=== PATIENT | male | born 1945 | race Caucasian/White ===

== ENCOUNTER 2017-04-07 15:47 | Emergency (ER) | payer MEDICARE, SELFPAY ==
[2017-04-07 16:15] VITALS: BP 150/65; PULSE 74; RESP 16; TEMP 36.7; O2SAT 98; BMI 31.3
== END 2017-04-07 16:50 | disposition home or self-care (01) ==
PROVIDERS: Emergency Provider Physician Assistant; Family Provider General Practice
DX: J01.90 Acute sinusitis, unspecified (principal)
CPT/HCPCS: G0463; 99202

== ENCOUNTER → 2018-11-28 14:05 | Outpatient (CLI) | payer MEDICARE, SELFPAY ==
--- NOTE | 2018-11-28 14:12 | XR_ITS ---
PROCEDURE: XR HAND RT MIN 3V CLINICAL INDICATION: hand injury Posttraumatic pain COMPARISON: No exams were available for comparison FINDINGS: No fracture or dislocation. No lytic or blastic change. There is normal mineralization. The joint spaces are well-preserved. No significant degenerative/arthritic changes. No erosive changes evident. Other findings:None. IMPRESSION: No acute findings. Dictated by: Lobo Freed MD 11/28/2018 16:04 Signed by: <Electronically signed by Lobo Freed MD in [place]> 11/28/2018 16:04
== END ==
PROVIDERS: PCP General Practice; Visit Provider Orthopaedic Surgery
DX: L08.9 Local infection of the skin and subcutaneous tissue, unspecified (principal); S61.411A Laceration without foreign body of right hand, initial encounter
CPT/HCPCS: 73130

== ENCOUNTER → 2020-06-16 13:49 | Outpatient (CLI) | payer MEDICARE, SELFPAY ==
--- NOTE | 2020-06-16 14:00 | MR_ITS ---
PROCEDURE: MR ORBITS FACE NECK WO/W CON CLINICAL INDICATION: SWOLLEN RT SALIVARY GLAND Pt states hx of rt swollen rt salivary gland found by oral surgeon. COMPARISON: No exams were available for comparison TECHNIQUE: Routine multiplanar multi echo sequences are performed without gadolinium enhancement. FINDINGS: There are 2 small nodular areas in the anterior aspect of the right lobe of the thyroid gland measuring 4 and 3 mm isointense on T1 and hyperintense on T2 and may be due to some 2 small nodes. Scattered small nodes are present in the neck on both sides measuring up to 9 mm anterior to the left submandibular gland. There is a 5 and a 6 mm node superficial to the right submandibular gland. Thyroid gland has an unremarkable appearance. There is an air-fluid level in the left maxillary sinus with mild mucosal thickening of the left maxillary sinus. Small nodes are present in the internal jugular chains on both sides measuring up to 10 by 6 mm on the left. The nasopharynx, oropharynx, and epiglottis have an unremarkable appearance. There is minimal nodularity noted along the left vocal fold best detected on series 3 image 28. This measures approximately 3 mm and is of questionable clinical significance. Direct visualization may provide further evaluation. There is degenerative disc disease at C5-C6 with endplate osteophytes and bulging disc causing canal stenosis. There is mild bulging disc with degenerative disc disease at C6-C7 also with canal stenosis. IMPRESSION: 1. Scattered small cervical nodes present in the neck as described above with 2 suspected small nodes anterior to the right parotid gland as well as small nodes superficial to the submandibular glands. No dominant adenopathy. No abnormal fluid collections. 2. Left maxillary sinus disease. 3. Questionable small nodule of the left vocal fold. This may be better evaluated with direct visualization. 4. Degenerative disc disease with canal stenosis at C5-C6 and C6-C7 Dictated by: Lobo Freed MD 06/17/2020 12:49 Lobo Freed MD in [place] 06/17/2020 12:49
== END ==
PROVIDERS: PCP General Practice; Visit Provider Dentist
DX: D37.030 Neoplasm of uncertain behavior of the parotid salivary glands (principal)
CPT/HCPCS: 70543; A9576

== ENCOUNTER → 2020-10-19 13:36 | Outpatient (CLI) | payer MEDICARE, SELFPAY ==
[2020-10-19 14:15] LABS: Chloride 102 mmol/L (98-107); Potassium 4.2 mmoL/L (3.5-5.1); Sodium 139 mmol/L (136-145)
[2020-10-19 14:17] LABS: Blood Urea Nitrogen 18 mg/dl (9-20); Estimated Glomerular Filt Rate 65 ml/min (>60); GFR (African American) 79 ML/MIN (>60)
[2020-10-19 14:18] LABS: Alanine Aminotransferase 21 U/L (12-78); Albumin Level 4.4 g/dl (3.5-5.0); Albumin/Globulin Ratio 1.8 (1.1-1.8); Alkaline Phosphatase 74 U/L (38-126); Anion Gap 13.2 mEq/L (5-15); Aspartate Amino Transferase 28 U/L (17-59); Bilirubin,Total 1.1 mg/dl (0.2-1.3); Calcium 9.2 mg/dl (8.4-10.2); Carbon Dioxide 28 mmol/L (22.0-30.0); Chol/HDL Ratio 2.8 (1-3.5); Cholesterol 133 mg/dl (140-200); Globulin 2.4 g/dL (1.3-3.2); Glucose 100 mg/dl (74-100); HDL Cholesterol 48 mg/dl (40-60); Total Protein,Serum 6.8 g/dl (6.3-8.2); Triglycerides 108 mg/dl (30-150); VLDL Cholesterol 22 mg/dL (0-40)
[2020-10-19 14:28] LABS: Basophils # 0.1 K/mm3 (0-0.2); Eosinophils # 0.1 K/mm3 (0.0-0.4); Eosinophils % 1.8 % (0.1-12.0); Hematocrit 44.9 % (42.0-52.0); Hemoglobin 15.3 g/dL (14.1-18.0); Lymphocytes # 1.5 K/mm3 (0.7-4.5); Lymphocytes % 26.7 % (10-50); Mean Corpuscular Hemoglobin 33.3 pg (27.0-31.2); Mean Corpuscular Volume 97.7 fl (80-94); Mean Platelet Volume 8.3 fl (7.4-10.4); Monocytes # 0.4 K/mm3 (0.1-1.0); Neutrophils # 3.6 K/mm3 (1.8-7.8); Neutrophils % 63.4 % (37.0-80.0); Platelet Count 235 K/mm3 (142-424); Red Cell Distribution Width 13.7 % (11.5-17.5); White Blood Count 5.7 K/mm3 (4.8-10.8)
[2020-10-19 14:29] LABS: Direct LDL Cholesterol 63.56 mg/dL (100-129)
[2020-10-19 14:35] LABS: Triiodothryronine (T3) Uptake 32 % (23.5-40.5)
[2020-10-19 14:36] LABS: Free Thyroxine Index 2.4 ug/dL (5.93-13.13); T4 (Thyroxine) 7.6 ug/dl (5.53-11.0)
[2020-10-19 14:49] LABS: Thyroid Stimulating Hormone 1.04 uIU/mL (0.465-4.68)
== END ==
PROVIDERS: Visit Provider General Practice
DX: I10 Essential (primary) hypertension (principal); E78.5 Hyperlipidemia, unspecified; R73.09 Other abnormal glucose; Z79.899 Other long term (current) drug therapy
CPT/HCPCS: 36415; 80053; 80061; 84436; 84443; 84479; 85025

== ENCOUNTER → 2021-05-19 13:31 | Outpatient (CLI) | payer MEDICARE, SELFPAY ==
[2021-05-19 13:51] LABS: Microscopic, Urine URINE MICROSCOPIC (MICROSCOPIC)
[2021-05-19 14:05] LABS: Basophils # 0.1 K/mm3 (0-0.2); Eosinophils # 0.1 K/mm3 (0.0-0.4); Eosinophils % 2.4 % (0.1-12.0); Hematocrit 45.4 % (42.0-52.0); Hemoglobin 15.4 g/dL (14.1-18.0); Lymphocytes # 1.6 K/mm3 (0.7-4.5); Lymphocytes % 29.3 % (10-50); Mean Corpuscular HGB Conc 34.1 g/dL (31.8-35.4); Mean Corpuscular Hemoglobin 33.7 pg (27.0-31.2); Mean Corpuscular Volume 98.9 fl (80-94); Monocytes # 0.3 K/mm3 (0.1-1.0); Monocytes % 5.8 % (1.7-9.3); Neutrophils # 3.4 K/mm3 (1.8-7.8); Neutrophils % 61.4 % (37.0-80.0); Platelet Count 257 K/mm3 (142-424); Red Blood Count 4.58 M/mm3 (4.60-6.20); Red Cell Distribution Width 13.2 % (11.5-17.5); White Blood Count 5.5 K/mm3 (4.8-10.8)
[2021-05-19 14:16] LABS: Appearance,Urine CLEAR (Clear); Bilirubin,Urine Negative (Negative); Blood, Urine Negative (Negative); Color,Urine YELLOW (Yellow); Glucose,Urine (UA) Negative (Negative); Ketones,Urine Negative (Negative); Leukocyte Esterase,Urine Negative (Negative); Nitrate,Urine Negative (Negative); Protein,Urine Negative (Negative); Urobilinogen,Urine 0.2 EU/dl (0.2)
[2021-05-19 14:28] LABS: Squamous Epithelial Cell,Urine Occasional #/hpf (0-5); WBC,Urine Occasional #/hpf (0-3)
[2021-05-19 14:46] LABS: Alanine Aminotransferase 30 U/L (12-78); Albumin Level 4.5 g/dl (3.5-5.0); Alkaline Phosphatase 64 U/L (38-126); Anion Gap 12.5 mEq/L (5-15); Aspartate Amino Transferase 36 U/L (17-59); Bilirubin,Total 0.9 mg/dl (0.2-1.3); Blood Urea Nitrogen 14 mg/dl (9-20); Calcium 9.1 mg/dl (8.4-10.2); Carbon Dioxide 28 mmol/L (22.0-30.0); Chloride 101 mmol/L (98-107); Chol/HDL Ratio 3.4 (1-3.5); Cholesterol 142 mg/dl (140-200); Estimated Glomerular Filt Rate 65 ml/min (>60); GFR (African American) 79 ML/MIN (>60); Globulin 2.3 g/dL (1.3-3.2); Glucose 153 mg/dl (74-100); HDL Cholesterol 42 mg/dl (40-60); Potassium 4.5 mmoL/L (3.5-5.1); Sodium 137 mmol/L (136-145); Total Protein,Serum 6.8 g/dl (6.3-8.2); Triglycerides 163 mg/dl (30-150); VLDL Cholesterol 33 mg/dL (0-40)
[2021-05-19 15:03] LABS: Free Thyroxine Index 2.2 ug/dL (5.93-13.13); T4 (Thyroxine) 6.8 ug/dl (5.53-11.0); Triiodothryronine (T3) Uptake 32 % (23.5-40.5)
[2021-05-19 15:17] LABS: Thyroid Stimulating Hormone 1.52 uIU/mL (0.465-4.68)
[2021-05-19 15:18] LABS: Prostate Specific Ag Screen 0.7 ng/ml (0.0-4.0)
[2021-05-19 15:53] LABS: Vitamin B12 657 pg/mL (239-931)
[2021-05-19 16:14] LABS: Folate > 20.00 ng/mL
== END ==
PROVIDERS: Visit Provider General Practice
DX: I10 Essential (primary) hypertension (principal); E78.5 Hyperlipidemia, unspecified; R73.09 Other abnormal glucose; K21.9 Gastro-esophageal reflux disease without esophagitis; Z12.11 Encounter for screening for malignant neoplasm of colon; Z12.5 Encounter for screening for malignant neoplasm of prostate; Z79.899 Other long term (current) drug therapy
CPT/HCPCS: 36415; 80053; 80061; 81001; 82607; 82746; 84436; 84443; 84479; 85025; G0103

== ENCOUNTER → 2021-06-15 13:03 | Outpatient (CLI) | payer MEDICARE, SELFPAY ==
[2021-06-15 13:11] LABS: Microscopic, Urine URINE MICROSCOPIC (MICROSCOPIC)
[2021-06-15 13:58] LABS: Appearance,Urine CLEAR (Clear); Bilirubin,Urine Negative (Negative); Blood, Urine Negative (Negative); Color,Urine YELLOW (Yellow); Glucose,Urine (UA) Negative (Negative); Ketones,Urine Negative (Negative); Leukocyte Esterase,Urine Negative (Negative); Nitrate,Urine Negative (Negative); Protein,Urine Negative (Negative); Specific Gravity, Urine 1.015 (1.005-1.030); Urobilinogen,Urine 0.2 EU/dl (0.2)
[2021-06-15 14:46] LABS: Albumin Level 4.1 g/dl (3.5-5.0); Anion Gap 11.3 mEq/L (5-15); Blood Urea Nitrogen 17 mg/dl (9-20); Calcium 8.9 mg/dl (8.4-10.2); Carbon Dioxide 27 mmol/L (22.0-30.0); Chloride 102 mmol/L (98-107); Estimated Glomerular Filt Rate 65 ml/min (>60); GFR (African American) 79 ML/MIN (>60); Glucose 140 mg/dl (74-100); Phosphorous 3.5 mg/dl (2.5-4.5); Potassium 4.3 mmoL/L (3.5-5.1); Sodium 136 mmol/L (136-145)
[2021-06-15 14:47] LABS: Bacteria,Urine Trace /lpf; Squamous Epithelial Cell,Urine Occasional #/hpf (0-5)
== END ==
PROVIDERS: Visit Provider Internal Medicine Nephrology
DX: N18.2 Chronic kidney disease, stage 2 (mild) (principal)
CPT/HCPCS: 36415; 80069; 81001

== ENCOUNTER 2021-07-06 13:54 | Emergency (ER) | payer MEDICARE, SELFPAY ==
[2021-07-06 14:00] VITALS: BP 115/60; PULSE 78; RESP 19; TEMP 36.7; O2SAT 100; BMI 31.9
--- NOTE | 2021-07-06 14:22 | HMH.EDUTC ---
[facility] [place] Disposition Clinical Impression: Sinusitis Qualifiers: Sinusitis location: unspecified location Chronicity: unspecified Qualified Code(s): J32.9 - Chronic sinusitis, unspecified Disposition: Home, Self-Care Condition on Discharge: Good Instructions: Sinusitis, DI for Sinusitis Additional Instructions: *Monitor Temp, Over the counter Motrin or Tylenol as directed/as needed Tylenol every 4 hours and Motrin every 6 hours (as long as your family doctor has told you that you can take it) for fever or pain. and straight to ER if unable to lower temp less than 101.0 after medication given *Warm salt water gargles may help to soothe the throat *Throat Lozenges *Warm fluids like tea with honey may help to soothe the throat *Sleep elevated *Humidifier/Vaporizer Follow up IMMEDIATELY for new or worsening symptoms or no Noticeable improvement over the next 48-72 hours. 911 for difficulty breathing or swallowing Prescriptions: Benzonatate [Benzonatate 100mg cap] 100 mg PO Q8HP PRN #15 cap PRN Reason: Cough Transmission Status: Pending to [facility] Azithromycin [Z-Benson 250mg Tab] 250 mg PO DIRECTED #6 tab Transmission Status: Received by [id number] Referrals: Provider,Referral, MD [Primary Care Provider] - As needed Time of Disposition: 14:33 Medical Decision Making - Delgado Inquiry Pt receiving controlled substance: No Delgado was queried for this patient: No Vital Signs: 07/06/21 14:00 07/06/21 14:41 Temperature 98.1 F 98.1 F Temperature Source Oral Pulse Rate 78 Pulse Rate [Right Brachial] 78 Respiratory Rate 19 19 Blood Pressure 115/60 Blood Pressure [Right Arm] 115/60 Blood Pressure Mean [Right Arm] 78 Blood Pressure Source [Right Arm] Automatic Cuff Blood Pressure Position [Right Arm] Sitting 02 Sat by Pulse Oximetry 100 Oxygen Delivery Method Room Air Orders (Tests/Meds): ED MEDICATIONS Discontinued Medications Generic Name Dose Route Start Last Admin Trade Name Freq PRN Reason Stop Dose Admin Methylprednisolone Sodium Succinate 125 mg 07/06/21 14:31 07/06/21 14:31 Methylprednisolone Sod Succ 125mg Vial IM 07/06/21 14:32 125 mg ONCE ONE Administration Medical Decision Narrative: Patient states that he has taken azithromycin in the past without complications or reactions [facility] [place] HPI - General Stated complaint: congestion, runny nose Time Seen by Provider: 07/06/21 14:22 Mode of Arrival: Ambulatory Source of Information: Patient Limitations: No Limitations Description of Symptoms (Recalled from Triage Doc. by RN): PATIENT C/O SINUS PRESSURE, HEADACHE AND COUGH HEENT Symptoms (Recalled from RN notes): Yes Resp Symptoms (Recalled from RN notes): Yes Skin Symptoms (Recalled from RN notes): No MS Symptoms (Recalled from RN notes): No Functional Status (Recalled from RN notes): WNL - History of Present Illness Provider Complaint: Patient states that has been having sinus pain and pressure along with drainage in the back of his throat States that he gets this a couple times a year and has to go in and get a shot of steriod and a zpack to clear it up States that over the last week or so it has continued to get worse and feels like his teeth are sore from the sinus pressure - Related Data Home Medications Medication Instructions Recorded Confirmed cetirizine 10 mg capsule 10 mg PO DAILY cap 01/09/18 03/22/19 chlorthalidone 25 mg tablet 25 mg PO DAILY 01/09/18 03/22/19 ezetimibe 10 mg tablet 10 mg PO DAILY 01/09/18 03/22/19 lisinopril 40 mg tablet 40 mg PO DAILY 01/09/18 03/22/19 ropinirole 0.25 mg tablet 0.25 mg PO QHS 01/09/18 03/22/19 rosuvastatin 5 mg tablet 5 mg PO DAILY 01/09/18 03/22/19 flu vacc [id number](65yr up)PF 180 IM 03/22/19 03/22/19 mcg/0.5 mL intramuscular syringe ibuprofen 600 mg tablet 600 mg PO TID PRN tab 03/22/19 03/22/19 icosapent ethyl 1 gram capsule 2 g PO BID 03/22/19 03/22/19 Previous Rx's [facility]
[2021-07-06 14:41] VITALS: BP 115/60; PULSE 78; RESP 19; TEMP 36.7; O2SAT 100
[2021-07-06 15:01] LABS: UTC Influenza A Antigen Negative (Negative); UTC Influenza B Antigen Negative (Negative)
== END 2021-07-06 15:04 | disposition home or self-care (01) ==
PROVIDERS: Emergency Provider Nurse Practitioner
DX: J32.9 Chronic sinusitis, unspecified (principal); I10 Essential (primary) hypertension; E78.5 Hyperlipidemia, unspecified; Z87.891 Personal history of nicotine dependence; Z79.899 Other long term (current) drug therapy
CPT/HCPCS: 87804; 96372; 99212; G0463

== ENCOUNTER → 2021-08-09 16:15 | Outpatient (CLI) | payer MEDICARE, SELFPAY ==
[2021-08-09 16:30] LABS: Microscopic, Urine URINE MICROSCOPIC (MICROSCOPIC)
[2021-08-09 16:44] LABS: Basophils # 0.2 K/mm3 (0-0.2); Basophils % 3.1 % (0.1-2.0); Eosinophils # 0.1 K/mm3 (0.0-0.4); Eosinophils % 1.7 % (0.1-12.0); Hematocrit 45.4 % (42.0-52.0); Hemoglobin 15.2 g/dL (14.1-18.0); Lymphocytes # 1.5 K/mm3 (0.7-4.5); Lymphocytes % 24.9 % (10-50); Mean Corpuscular HGB Conc 33.5 g/dL (31.8-35.4); Mean Corpuscular Hemoglobin 33.7 pg (27.0-31.2); Mean Corpuscular Volume 100.8 fl (80-94); Mean Platelet Volume 8.4 fl (7.4-10.4); Monocytes # 0.4 K/mm3 (0.1-1.0); Monocytes % 7.3 % (1.7-9.3); Neutrophils # 3.7 K/mm3 (1.8-7.8); Platelet Count 236 K/mm3 (142-424); Red Blood Count 4.51 M/mm3 (4.60-6.20); Red Cell Distribution Width 13.5 % (11.5-17.5); White Blood Count 5.9 K/mm3 (4.8-10.8)
[2021-08-09 17:28] LABS: Alanine Aminotransferase 25 U/L (12-78); Albumin Level 4.4 g/dl (3.5-5.0); Alkaline Phosphatase 62 U/L (38-126); Anion Gap 10.1 mEq/L (5-15); Aspartate Amino Transferase 28 U/L (17-59); Bilirubin,Total 0.7 mg/dl (0.2-1.3); Blood Urea Nitrogen 14 mg/dl (9-20); Calcium 9.7 mg/dl (8.4-10.2); Carbon Dioxide 30 mmol/L (22.0-30.0); Chloride 100 mmol/L (98-107); Chol/HDL Ratio 3.4 (1-3.5); Cholesterol 148 mg/dl (140-200); Estimated Glomerular Filt Rate 65 ml/min (>60); GFR (African American) 79 ML/MIN (>60); Globulin 2.2 g/dL (1.3-3.2); Glucose 131 mg/dl (74-100); HDL Cholesterol 43 mg/dl (40-60); Potassium 4.1 mmoL/L (3.5-5.1); Sodium 136 mmol/L (136-145); Total Protein,Serum 6.6 g/dl (6.3-8.2); Triglycerides 175 mg/dl (30-150); VLDL Cholesterol 35 mg/dL (0-40)
[2021-08-09 17:40] LABS: Direct LDL Cholesterol 65.03 mg/dL (100-129)
[2021-08-09 17:45] LABS: Free Thyroxine Index 2.1 ug/dL (5.93-13.13); T4 (Thyroxine) 6.8 ug/dl (5.53-11.0); Triiodothryronine (T3) Uptake 31 % (23.5-40.5)
[2021-08-09 17:59] LABS: Thyroid Stimulating Hormone 1.57 uIU/mL (0.465-4.68)
[2021-08-09 18:35] LABS: Vitamin B12 532 pg/mL (239-931)
[2021-08-09 18:43] LABS: Folate > 20.00 ng/mL
[2021-08-09 20:16] LABS: Appearance,Urine CLEAR (Clear); Bilirubin,Urine Negative (Negative); Blood, Urine Negative (Negative); Color,Urine YELLOW (Yellow); Glucose,Urine (UA) Negative (Negative); Ketones,Urine Negative (Negative); Leukocyte Esterase,Urine Negative (Negative); Nitrate,Urine Negative (Negative); PH,Urine 7.5 (5.0-8.5); Protein,Urine Negative (Negative); Urobilinogen,Urine 0.2 EU/dl (0.2)
[2021-08-09 21:10] LABS: Bacteria,Urine Trace /lpf; WBC,Urine Occasional #/hpf (0-3)
== END ==
PROVIDERS: PCP General Practice; Visit Provider General Practice
DX: I10 Essential (primary) hypertension (principal); E78.5 Hyperlipidemia, unspecified; R73.09 Other abnormal glucose; Z79.899 Other long term (current) drug therapy
CPT/HCPCS: 36415; 80053; 80061; 81001; 82607; 82746; 83036; 84436; 84443; 84479; 85025

== ENCOUNTER 2021-09-11 14:00 | Outpatient (RCR) | payer MEDICARE, SELFPAY | END 2021-09-11 14:05 | disposition home or self-care (01) | LOC: OT 14:00 | PROVIDERS: PCP General Practice; Visit Provider General Practice | DX: M25.511 Pain in right shoulder (principal) | CPT/HCPCS: 97010; 97014; 97110; 97140; 97164; 97165; 97530; G0283 ==

== ENCOUNTER → 2021-10-10 17:25 | Outpatient (CLI) | payer MEDICARE, SELFPAY ==
--- NOTE | 2021-10-10 17:38 | XR_ITS ---
PROCEDURE INFORMATION: Exam: XR Chest Exam date and time: 10/10/2021 5:41 PM Age: 76 years old Clinical indication: Cough; Additional info: Cough, dyspnea TECHNIQUE: Imaging protocol: Radiologic exam of the chest. Views: 2 views. COMPARISON: MR ORBITS FACE NECK WO/W CON 06/16/2020 2:09 PM FINDINGS: Lungs: Unremarkable. No consolidation. Pleural spaces: Unremarkable. No pleural effusion. No pneumothorax. Heart/Mediastinum: Unremarkable. No cardiomegaly. Bones/joints: Unremarkable. IMPRESSION: No acute findings.
== END ==
PROVIDERS: PCP General Practice; Visit Provider General Practice
DX: R06.09 Other forms of dyspnea (principal); R05.9 Cough, unspecified
CPT/HCPCS: 71046

== ENCOUNTER → 2022-01-18 11:19 | Outpatient (CLI) | payer MEDICARE, SELFPAY ==
[2022-01-18 11:29] LABS: Microscopic, Urine URINE MICROSCOPIC (MICROSCOPIC)
[2022-01-18 12:20] LABS: Appearance,Urine CLEAR (Clear); Bilirubin,Urine Negative (Negative); Blood, Urine Negative (Negative); Color,Urine YELLOW (Yellow); Glucose,Urine (UA) Negative (Negative); Ketones,Urine Negative (Negative); Leukocyte Esterase,Urine Negative (Negative); Nitrate,Urine Negative (Negative); PH,Urine 6.5 (5.0-8.5); Protein,Urine Negative (Negative); Urobilinogen,Urine 0.2 EU/dl (0.2)
[2022-01-18 12:24] LABS: Basophils # 0.2 K/mm3 (0-0.2); Basophils % 2.8 % (0.1-2.0); Eosinophils # 0.2 K/mm3 (0.0-0.4); Eosinophils % 2.2 % (0.1-12.0); Lymphocytes # 1.4 K/mm3 (0.7-4.5); Lymphocytes % 21.9 % (10-50); Mean Corpuscular HGB Conc 32.6 g/dL (31.8-35.4); Mean Corpuscular Hemoglobin 32.5 pg (27.0-31.2); Mean Corpuscular Volume 99.6 fl (80-94); Mean Platelet Volume 8.7 fl (7.4-10.4); Monocytes # 0.4 K/mm3 (0.1-1.0); Monocytes % 5.2 % (1.7-9.3); Neutrophils # 4.5 K/mm3 (1.8-7.8); Neutrophils % 67.8 % (37.0-80.0); Platelet Count 262 K/mm3 (142-424); Red Blood Count 4.62 M/mm3 (4.60-6.20); Red Cell Distribution Width 13.9 % (11.5-17.5); White Blood Count 6.6 K/mm3 (4.8-10.8)
[2022-01-18 12:29] LABS: WBC,Urine Occasional #/hpf (0-3)
[2022-01-18 12:30] LABS: Bacteria,Urine Trace /lpf; Squamous Epithelial Cell,Urine Occasional #/hpf (0-5)
[2022-01-18 13:44] LABS: Alanine Aminotransferase 23 U/L (12-78); Albumin Level 4.2 g/dl (3.5-5.0); Albumin/Globulin Ratio 1.7 (1.1-1.8); Alkaline Phosphatase 94 U/L (38-126); Anion Gap 16.9 mEq/L (5-15); Aspartate Amino Transferase 28 U/L (17-59); Bilirubin,Total 0.5 mg/dl (0.2-1.3); Blood Urea Nitrogen 20 mg/dl (9-20); Calcium 9.3 mg/dl (8.4-10.2); Carbon Dioxide 30 mmol/L (22.0-30.0); Chloride 95 mmol/L (98-107); Chol/HDL Ratio 2.8 (1-3.5); Cholesterol 114 mg/dl (140-200); Estimated Glomerular Filt Rate 59 ml/min (>60); GFR (African American) 71 ML/MIN (>60); Globulin 2.5 g/dL (1.3-3.2); Glucose 115 mg/dl (74-100); HDL Cholesterol 41 mg/dl (40-60); Potassium 4.9 mmoL/L (3.5-5.1); Sodium 137 mmol/L (136-145); Total Protein,Serum 6.7 g/dl (6.3-8.2); Triglycerides 116 mg/dl (30-150); VLDL Cholesterol 23 mg/dL (0-40)
[2022-01-18 14:15] LABS: Thyroid Stimulating Hormone 2.73 uIU/mL (0.465-4.68)
[2022-01-18 14:50] LABS: Vitamin B12 534 pg/mL (239-931)
[2022-01-18 15:14] LABS: Folate > 20.00 ng/mL
[2022-01-18 16:16] LABS: Hemoglobin A1C 6.2 % (4.0-6.0)
== END ==
PROVIDERS: PCP General Practice; Visit Provider General Practice
DX: E11.9 Type 2 diabetes mellitus without complications (principal); I10 Essential (primary) hypertension; E78.5 Hyperlipidemia, unspecified; K21.9 Gastro-esophageal reflux disease without esophagitis; Z79.899 Other long term (current) drug therapy
CPT/HCPCS: 36415; 80053; 80061; 81001; 82607; 82746; 83036; 84443; 85025

== ENCOUNTER → 2022-01-31 14:06 | Outpatient (CLI) | payer MEDICARE, SELFPAY ==
--- NOTE | 2022-01-31 14:11 | XR_ITS ---
FINAL REPORT CLINICAL HISTORY: LT KNEE PAIN FINDINGS: LEFT KNEE 3 views of the left knee were obtained. There is no acute fracture or dislocation. There are mild and moderate degenerative changes worse in the medial compartment. There is mild lateral subluxation of the tibia in relation to the distal femur. There is a chronic calcification adjacent to the tibial tubercle. There is a small joint effusion. There are mild vascular calcifications. Soft tissues are unremarkable. IMPRESSION: Degenerative and chronic changes as above. Reviewed, Interpreted and Dictated by Colt Elizondo III, MD Transcribed by Archana Vides Authenticated and [facility]
== END ==
PROVIDERS: PCP General Practice; Visit Provider General Practice
DX: M25.562 Pain in left knee (principal)
CPT/HCPCS: 73562

== ENCOUNTER 2022-02-11 13:43 | Emergency (ER) | payer MEDICARE, SELFPAY ==
[2022-02-11] VITALS (7 sets, daily range): BP systolic 113–136; BP diastolic 62–78; PULSE 52–64; RESP 10–17; TEMP 36.6; O2SAT 95–99; BMI 25.4
--- NOTE | 2022-02-11 13:55 | ECG_ITS ---
APPROVED REPORT Exam: Resting ECG HR:60 bpm ECG Measurements Heart Rate 60 AXES WY 166 P 123 QRSd 107 QRS 40 QT 405 T 0 QTc 405 Conclusion SINUS RHYTHM NONSPECIFIC T-WAVE ABNORMALITY BORDERLINE ECG UNCONFIRMED REPORT Electronically signed by : Chad Palacios MD 02/11/2022 17:11:53
--- NOTE | 2022-02-11 14:18 | XR_ITS ---
PROCEDURE INFORMATION: Exam: XR Chest Exam date and time: 02/11/2022 2:34 PM Age: 77 years old Clinical indication: Sternal or substernal pain; Additional info: Chest pain TECHNIQUE: Imaging protocol: Radiologic exam of the chest. Views: 1 view. COMPARISON: CR XR CHEST 2V 10/10/2021 5:41 PM FINDINGS: Lungs: No evidence of pneumonia or interstitial edema. Pleural spaces: Unremarkable. No pleural effusion. No pneumothorax. Heart/Mediastinum: Unremarkable. No cardiomegaly. Bones/joints: Unremarkable. IMPRESSION: No evidence of pneumonia or interstitial edema.
--- NOTE | 2022-02-11 14:21 | HMH.EDGENADL ---
Discharge Plan Disposition Patient Disposition: Home, Self-Care Condition: Good Prescriptions Prescriptions: No Action triamcinolone acetonide 0.1 % paste 1 applic DENTAL BID PRN (Reason: mouth irritation) 14 Days Qty: 5 0RF Rx Instructions: use after food and/or drink and/or oral hygiene methylprednisolone acetate 80 mg/mL suspension 80 mg IM ONCE Qty: 1 0RF flu vacc [id number](65yr up)PF 180 mcg/0.5 mL syringe IM Label Comments: GIVEN AT PHARMACY ibuprofen 600 mg tablet 600 mg PO TID PRN Label Comments: take 1 tablet by mouth every 8 hours if needed for MILD TO MODERATE PAIN take with food Vascepa 1 gram capsule 2 g PO BID benzonatate 100 mg capsule 100 mg PO BID PRN (Reason: cough) Qty: 20 0RF lisinopril 40 mg tablet 40 mg PO DAILY ezetimibe [Zetia] 10 mg tablet 10 mg PO DAILY chlorthalidone 25 mg tablet 25 mg PO DAILY rosuvastatin [Crestor] 5 mg tablet 5 mg PO DAILY ropinirole 0.25 mg tablet 0.25 mg PO QHS Zyrtec 10 mg capsule 10 mg PO DAILY azithromycin 250 MG tablet 250 mg PO DIRECTED Qty: 6 0RF Rx Instructions: Take two (2) tablets on day #1, then one (1) tablet day #2 thru #5 benzonatate 100 MG capsule 100 mg PO Q8HP PRN (Reason: Cough) Qty: 15 0RF Referrals Follow up/Referrals: Gigi Bowers [Primary Care Provider] - See instructions Activity Restrictions/Add. Instructions Additional Instructions/Restrictions: You were evaluated in the emergency department today for chest pain. At this time, your labs and EKG are reassuring. Please follow-up with your primary care provider over the next 48 hours. Return to the emergency department for any new or worsening symptoms. Clinical Impressions Clinical Impression: Atypical chest pain Instructions Patient Instructions: DI for Atypical Chest Pain Discharge ED Provider: Rebeca William General Adult HPI General Chief complaint: Chest Pain Stated complaint: chest tightness, not heart related Time Seen by Provider: 02/11/22 13:52 History of Present Illness HPI narrative: This patient is a 77-year-old male with a history of hypertension and hyperlipidemia presenting to the emergency department for evaluation of chest pain. He reports that it started last night. He had gone to bed after eating a big bowl of chili, and he woke up with tightness in the center of his chest. It was nonradiating. No associated symptoms, such as fever, chills, cough, congestion, shortness of breath, abdominal pain, nausea, vomiting, diaphoresis, or other concerns. He states that he took ibuprofen this morning, 200 mg, with significant improvement and he can only barely feel a tiny bit of discomfort now. Breathing in deeply makes it worse. No other concerns noted at this time. No history of blood clots or clotting disorder. No recent leg swelling. Related Data Home Medications Medication Instructions Recorded Confirmed cetirizine 10 mg capsule (Zyrtec) 10 mg PO DAILY ... 01/09/18 03/22/19 chlorthalidone 25 mg tablet 25 mg PO DAILY ... 01/09/18 03/22/19 ezetimibe 10 mg tablet (Zetia) 10 mg PO DAILY .... 01/09/18 03/22/19 lisinopril 40 mg tablet 40 mg PO DAILY ... 01/09/18 03/22/19 ropinirole 0.25 mg tablet 0.25 mg PO QHS ... 01/09/18 03/22/19 rosuvastatin 5 mg tablet (Crestor) 5 mg PO DAILY ... 01/09/18 03/22/19 flu vacc [id number](65yr up)PF 180 IM 03/22/19 03/22/19 mcg/0.5 mL intramuscular syringe ibuprofen 600 mg tablet 600 mg PO TID PRN 03/22/19 03/22/19 icosapent ethyl 1 gram capsule 2 g PO BID 03/22/19 03/22/19 (Vascepa) Previous Rx's Medication Instructions Recorded triamcinolone acetonide 0.1 % 1 applic dental BID PRN mouth 10/07/18 dental paste irritation 14 days #5 grams benzonatate 100 mg capsule 100 mg PO BID PRN cough #20 caps 03/22/19 azithromycin 250 mg tablet 250 mg PO DIRECTED #6 tabs 07/06/21 benzonatate 100 mg capsule 1
[2022-02-11 14:27] LABS: Basophils # 0.1 K/mm3 (0-0.2); Basophils % 1.3 % (0.1-2.0); Eosinophils # 0.1 K/mm3 (0.0-0.4); Eosinophils % 1.3 % (0.1-12.0); Hematocrit 41.1 % (42.0-52.0); Hemoglobin 13.6 g/dL (14.1-18.0); Lymphocytes # 1.2 K/mm3 (0.7-4.5); Lymphocytes % 16.7 % (10-50); Mean Corpuscular HGB Conc 33.1 g/dL (31.8-35.4); Mean Corpuscular Hemoglobin 32.7 pg (27.0-31.2); Mean Corpuscular Volume 98.8 fl (80-94); Mean Platelet Volume 8.4 fl (7.4-10.4); Monocytes # 0.5 K/mm3 (0.1-1.0); Monocytes % 7.1 % (1.7-9.3); Neutrophils # 5.2 K/mm3 (1.8-7.8); Neutrophils % 73.7 % (37.0-80.0); Platelet Count 213 K/mm3 (142-424); Red Blood Count 4.16 M/mm3 (4.60-6.20); Red Cell Distribution Width 14.1 % (11.5-17.5)
[2022-02-11 14:37] LABS: Alanine Aminotransferase 24 U/L (12-78); Albumin Level 4.1 g/dl (3.5-5.0); Alkaline Phosphatase 90 U/L (38-126); Aspartate Amino Transferase 28 U/L (17-59); Bilirubin,Indirect 0.5 mg/dL (0.0-0.9); Bilirubin,Total 0.5 mg/dl (0.2-1.3); Bilirubin,Unconjugated 0.5 mg/dL (0.0-1.1); Blood Urea Nitrogen 19 mg/dl (9-20); Calcium 9.1 mg/dl (8.4-10.2); Carbon Dioxide 24 mmol/L (22.0-30.0); Chloride 99 mmol/L (98-107); Estimated Glomerular Filt Rate 72 ml/min (>60); GFR (African American) 88 ML/MIN (>60); Glucose 117 mg/dl (74-100); Sodium 136 mmol/L (136-145); Total Protein,Serum 6.8 g/dl (6.3-8.2)
[2022-02-11 14:52] LABS: Troponin I < 0.01 ng/ml (0.00-0.034)
--- NOTE | 2022-02-11 15:37 | PC.NURSE ---
checked on pt at this time. Pt was sleeping when i entered room, updated pt ER MDs POC is to have a second troponin draw at 3 hour felipa. Pt verbalized understanding. Pt states no needs at this time. Call light within reach.
[2022-02-11 17:48] LABS: Troponin I < 0.01 ng/ml (0.00-0.034)
== END 2022-02-11 18:20 | disposition home or self-care (01) ==
PROVIDERS: Emergency Provider Emergency Medicine; PCP General Practice
DX: R07.89 Other chest pain (principal); E78.5 Hyperlipidemia, unspecified; I10 Essential (primary) hypertension
CPT/HCPCS: 36415; 71045; 80048; 80076; 84484; 85025; 93005; 99284

== ENCOUNTER 2022-03-08 15:00 | Outpatient (RCR) | payer MEDICARE, SELFPAY | END 2022-03-08 15:05 | disposition home or self-care (01) | LOC: PT 15:00 | PROVIDERS: PCP General Practice; Visit Provider General Practice | DX: M25.562 Pain in left knee (principal) | CPT/HCPCS: 97010; 97014; 97110; 97163; 97535; G0283 ==

== ENCOUNTER → 2022-04-10 09:17 | Outpatient (CLI) | payer MEDICARE, SELFPAY ==
--- NOTE | 2022-04-10 09:27 | XR_ITS ---
FINAL REPORT CLINICAL HISTORY: ABD PAIN FINDINGS: ABDOMEN SINGLE VIEW There is a nonspecific, nonobstructive bowel gas pattern. No bowel dilation is identified. No abnormal calcification is seen. IMPRESSION: No acute process. Reviewed, Interpreted and Dictated by Colt Elizondo III, MD Transcribed by Hellen De Leon Authenticated and [facility]
== END ==
PROVIDERS: PCP General Practice; Visit Provider General Practice
DX: R10.84 Generalized abdominal pain (principal)
CPT/HCPCS: 74018

== ENCOUNTER → 2022-05-03 14:36 | Outpatient (CLI) | payer MEDICARE, SELFPAY ==
[2022-05-03 14:52] LABS: Microscopic, Urine URINE MICROSCOPIC (MICROSCOPIC)
[2022-05-03 15:12] LABS: Basophils # 0.2 K/mm3 (0-0.2); Basophils % 1.9 % (0.1-2.0); Eosinophils # 0.2 K/mm3 (0.0-0.4); Eosinophils % 2.7 % (0.1-12.0); Hematocrit 36.1 % (42.0-52.0); Hemoglobin 11.2 g/dL (14.1-18.0); Lymphocytes # 1.6 K/mm3 (0.7-4.5); Lymphocytes % 18.7 % (10-50); Mean Corpuscular HGB Conc 31.1 g/dL (31.8-35.4); Mean Corpuscular Hemoglobin 31.6 pg (27.0-31.2); Mean Corpuscular Volume 101.4 fl (80-94); Mean Platelet Volume 9.7 fl (7.4-10.4); Monocytes # 0.6 K/mm3 (0.1-1.0); Monocytes % 6.5 % (1.7-9.3); Neutrophils % 70.3 % (37.0-80.0); Platelet Count 360 K/mm3 (142-424); Red Blood Count 3.56 M/mm3 (4.60-6.20); White Blood Count 8.6 K/mm3 (4.8-10.8)
[2022-05-03 17:08] LABS: Chloride 110 mmol/L (98-107); Sodium 143 mmol/L (136-145)
[2022-05-03 17:09] LABS: Albumin Level 3.3 g/dl (3.5-5.0); Potassium 4.5 mmoL/L (3.5-5.1)
[2022-05-03 17:11] LABS: Anion Gap 13.5 mEq/L (5-15); Blood Urea Nitrogen 36 mg/dl (9-20); Carbon Dioxide 24 mmol/L (22.0-30.0); Estimated Glomerular Filt Rate 35 ml/min (>60); GFR (African American) 42 ML/MIN (>60)
[2022-05-03 17:12] LABS: Calcium 8.4 mg/dl (8.4-10.2); Glucose 119 mg/dl (74-100)
[2022-05-03 21:17] LABS: Appearance,Urine CLEAR (Clear); Bilirubin,Urine Negative (Negative); Blood, Urine Negative (Negative); Color,Urine YELLOW (Yellow); Glucose,Urine (UA) Negative (Negative); Ketones,Urine Negative (Negative); Leukocyte Esterase,Urine Negative (Negative); Nitrate,Urine Negative (Negative); PH,Urine 5.5 (5.0-8.5); Protein,Urine Negative (Negative); Specific Gravity, Urine 1.015 (1.005-1.030); Urobilinogen,Urine 0.2 EU/dl (0.2)
[2022-05-03 21:45] LABS: Bacteria,Urine 1+ /lpf
== END ==
PROVIDERS: PCP General Practice; Visit Provider Physician Assistant
DX: N18.2 Chronic kidney disease, stage 2 (mild) (principal)
CPT/HCPCS: 36415; 80069; 81001; 85025

== ENCOUNTER → 2022-05-17 14:07 | Outpatient (CLI) | payer MEDICARE, SELFPAY ==
[2022-05-17 14:18] LABS: Microscopic, Urine URINE MICROSCOPIC (MICROSCOPIC)
[2022-05-17 14:36] LABS: Basophils # 0.1 K/mm3 (0-0.2); Basophils % 1.4 % (0.1-2.0); Eosinophils # 0.2 K/mm3 (0.0-0.4); Eosinophils % 2.9 % (0.1-12.0); Hematocrit 36.2 % (42.0-52.0); Hemoglobin 11.6 g/dL (14.1-18.0); Lymphocytes # 1.2 K/mm3 (0.7-4.5); Mean Corpuscular Hemoglobin 31.5 pg (27.0-31.2); Mean Corpuscular Volume 98.3 fl (80-94); Mean Platelet Volume 9.3 fl (7.4-10.4); Monocytes # 0.3 K/mm3 (0.1-1.0); Monocytes % 4.9 % (1.7-9.3); Neutrophils # 4.1 K/mm3 (1.8-7.8); Neutrophils % 69.8 % (37.0-80.0); Platelet Count 256 K/mm3 (142-424); Red Blood Count 3.68 M/mm3 (4.60-6.20); White Blood Count 5.8 K/mm3 (4.8-10.8)
[2022-05-17 15:15] LABS: Appearance,Urine CLEAR (Clear); Bilirubin,Urine Negative (Negative); Blood, Urine Negative (Negative); Color,Urine YELLOW (Yellow); Glucose,Urine (UA) Negative (Negative); Ketones,Urine Negative (Negative); Leukocyte Esterase,Urine Negative (Negative); Nitrate,Urine Negative (Negative); Protein,Urine 3+ (Negative); Specific Gravity, Urine 1.025 (1.005-1.030)
[2022-05-17 15:34] LABS: Albumin Level 3.8 g/dl (3.5-5.0); Chloride 96 mmol/L (98-107); Sodium 138 mmol/L (136-145)
[2022-05-17 15:36] LABS: Blood Urea Nitrogen 13 mg/dl (9-20); Estimated Glomerular Filt Rate 45 ml/min (>60); GFR (African American) 55 ML/MIN (>60)
[2022-05-17 15:37] LABS: Anion Gap 13.9 mEq/L (5-15); Calcium 7.9 mg/dl (8.4-10.2); Carbon Dioxide 31 mmol/L (22.0-30.0); Glucose 121 mg/dl (74-100); Phosphorous 3.2 mg/dl (2.5-4.5)
[2022-05-17 15:41] LABS: Bacteria,Urine Trace /lpf; Squamous Epithelial Cell,Urine Occasional #/hpf (0-5); WBC,Urine Occasional #/hpf (0-3)
[2022-05-17 15:54] LABS: Potassium 2.9 mmoL/L (3.5-5.1)
[2022-05-17 16:43] LABS: Creatinine,Urine Random 272 mg/dL (Not Estab.)
== END ==
PROVIDERS: PCP Nurse Practitioner; Visit Provider Internal Medicine Nephrology
DX: N17.9 Acute kidney failure, unspecified (principal)
CPT/HCPCS: 36415; 80069; 81001; 82570; 84155; 85025

== ENCOUNTER → 2022-05-30 15:58 | Outpatient (CLI) | payer MEDICARE, SELFPAY ==
[2022-05-30 16:24] LABS: Microscopic, Urine URINE MICROSCOPIC (MICROSCOPIC)
[2022-05-30 17:20] LABS: Basophils # 0.2 K/mm3 (0-0.2); Basophils % 1.5 % (0.1-2.0); Eosinophils # 0.2 K/mm3 (0.0-0.4); Eosinophils % 2.2 % (0.1-12.0); Hematocrit 39.8 % (42.0-52.0); Hemoglobin 11.9 g/dL (14.1-18.0); Lymphocytes # 1.9 K/mm3 (0.7-4.5); Lymphocytes % 18.9 % (10-50); Mean Corpuscular Hemoglobin 30.8 pg (27.0-31.2); Mean Corpuscular Volume 102.9 fl (80-94); Mean Platelet Volume 9.2 fl (7.4-10.4); Monocytes # 0.7 K/mm3 (0.1-1.0); Monocytes % 6.7 % (1.7-9.3); Neutrophils # 7.3 K/mm3 (1.8-7.8); Neutrophils % 70.7 % (37.0-80.0); Platelet Count 327 K/mm3 (142-424); Red Blood Count 3.86 M/mm3 (4.60-6.20); Red Cell Distribution Width 16.6 % (11.5-17.5); White Blood Count 10.3 K/mm3 (4.8-10.8)
[2022-05-30 17:48] LABS: Albumin Level 3.7 g/dl (3.5-5.0); Anion Gap 10.6 mEq/L (5-15); Blood Urea Nitrogen 19 mg/dl (9-20); Calcium 8.6 mg/dl (8.4-10.2); Carbon Dioxide 26 mmol/L (22.0-30.0); Chloride 107 mmol/L (98-107); Estimated Glomerular Filt Rate 42 ml/min (>60); GFR (African American) 51 ML/MIN (>60); Glucose 85 mg/dl (74-100); Phosphorous 3.7 mg/dl (2.5-4.5); Potassium 4.6 mmoL/L (3.5-5.1); Sodium 139 mmol/L (136-145)
[2022-05-30 18:38] LABS: Creatinine,Urine Random 103 mg/dL (Not Estab.)
[2022-05-30 22:43] LABS: Appearance,Urine CLEAR (Clear); Bilirubin,Urine Negative (Negative); Blood, Urine Negative (Negative); Color,Urine YELLOW (Yellow); Glucose,Urine (UA) Negative (Negative); Ketones,Urine Negative (Negative); Leukocyte Esterase,Urine TRACE (Negative); Nitrate,Urine Negative (Negative); Protein,Urine Negative (Negative); Urobilinogen,Urine 0.2 EU/dl (0.2)
[2022-05-30 22:47] LABS: Squamous Epithelial Cell,Urine Occasional #/hpf (0-5)
== END ==
PROVIDERS: PCP Nurse Practitioner; Visit Provider Student in an Organized Health Care Education/Training Program
DX: N17.9 Acute kidney failure, unspecified (principal)
CPT/HCPCS: 36415; 80069; 81001; 82570; 84155; 85025

== ENCOUNTER 2022-06-19 14:00 | Outpatient (RCR) | payer MEDICARE, SELFPAY | END 2022-06-19 14:05 | disposition home or self-care (01) | LOC: PT 14:00 | PROVIDERS: PCP General Practice; Visit Provider Nurse Practitioner | DX: R53.1 Weakness (principal); R68.89 Other general symptoms and signs; Z74.09 Other reduced mobility | CPT/HCPCS: 97110; 97163; 97164; 97530; 97535 ==

== ENCOUNTER → 2022-08-07 11:59 | Outpatient (CLI) | payer MEDICARE, SELFPAY ==
[2022-08-07 12:53] LABS: Alanine Aminotransferase 17 U/L (12-78); Albumin Level 3.6 g/dl (3.5-5.0); Albumin/Globulin Ratio 1.6 (1.1-1.8); Alkaline Phosphatase 107 U/L (38-126); Anion Gap 17.5 mEq/L (5-15); Aspartate Amino Transferase 29 U/L (17-59); Bilirubin,Total 0.9 mg/dl (0.2-1.3); Blood Urea Nitrogen 23 mg/dl (9-20); Calcium 8.5 mg/dl (8.4-10.2); Carbon Dioxide 28 mmol/L (22.0-30.0); Chloride 96 mmol/L (98-107); Estimated Glomerular Filt Rate 59 ml/min (>60); GFR (African American) 71 ML/MIN (>60); Globulin 2.3 g/dL (1.3-3.2); Glucose 87 mg/dl (74-100); Potassium 3.5 mmoL/L (3.5-5.1); Sodium 138 mmol/L (136-145); Total Protein,Serum 5.9 g/dl (6.3-8.2)
== END ==
PROVIDERS: PCP Nurse Practitioner; Visit Provider Internal Medicine Cardiovascular Disease
DX: I10 Essential (primary) hypertension (principal)
CPT/HCPCS: 36415; 80053

== ENCOUNTER → 2022-08-10 12:35 | Outpatient (CLI) | payer MEDICARE, SELFPAY ==
[2022-08-10 12:45] LABS: Microscopic, Urine URINE MICROSCOPIC (MICROSCOPIC)
[2022-08-10 13:31] LABS: Appearance,Urine CLOUDY (Clear); Bilirubin,Urine Negative (Negative); Blood, Urine Negative (Negative); Color,Urine YELLOW (Yellow); Glucose,Urine (UA) Negative (Negative); Ketones,Urine Negative (Negative); Leukocyte Esterase,Urine Negative (Negative); Nitrate,Urine Negative (Negative); Protein,Urine Negative (Negative)
[2022-08-10 13:36] LABS: Basophils # 0.1 K/mm3 (0-0.2); Basophils % 1.3 % (0.1-2.0); Eosinophils # 0.1 K/mm3 (0.0-0.4); Eosinophils % 3.8 % (0.1-12.0); Hematocrit 40.3 % (42.0-52.0); Hemoglobin 12.6 g/dL (14.1-18.0); Lymphocytes # 0.9 K/mm3 (0.7-4.5); Lymphocytes % 24.1 % (10-50); Mean Corpuscular HGB Conc 31.4 g/dL (31.8-35.4); Mean Corpuscular Hemoglobin 30.8 pg (27.0-31.2); Mean Corpuscular Volume 98.2 fl (80-94); Mean Platelet Volume 9.3 fl (7.4-10.4); Monocytes # 0.3 K/mm3 (0.1-1.0); Monocytes % 8.3 % (1.7-9.3); Neutrophils # 2.3 K/mm3 (1.8-7.8); Neutrophils % 62.5 % (37.0-80.0); Platelet Count 248 K/mm3 (142-424); Red Cell Distribution Width 17.2 % (11.5-17.5); White Blood Count 3.6 K/mm3 (4.8-10.8)
[2022-08-10 13:44] LABS: Bacteria,Urine 3+ /lpf; Squamous Epithelial Cell,Urine Occasional #/hpf (0-5); WBC,Urine Occasional #/hpf (0-3)
[2022-08-10 14:07] LABS: Albumin Level 3.7 g/dl (3.5-5.0); Anion Gap 18.6 mEq/L (5-15); Blood Urea Nitrogen 15 mg/dl (9-20); Calcium 8.7 mg/dl (8.4-10.2); Carbon Dioxide 30 mmol/L (22.0-30.0); Chloride 94 mmol/L (98-107); Estimated Glomerular Filt Rate 65 ml/min (>60); GFR (African American) 79 ML/MIN (>60); Glucose 93 mg/dl (74-100); Phosphorous 3.6 mg/dl (2.5-4.5); Potassium 4.6 mmoL/L (3.5-5.1); Sodium 138 mmol/L (136-145)
== END ==
PROVIDERS: PCP Nurse Practitioner; Visit Provider Internal Medicine Nephrology
DX: N18.9 Chronic kidney disease, unspecified (principal); R82.90 Unspecified abnormal findings in urine; B96.89 Other specified bacterial agents as the cause of diseases classified elsewhere; B96.1 Klebsiella pneumoniae [K. pneumoniae] as the cause of diseases classified elsewhere
CPT/HCPCS: 36415; 80069; 81001; 85025; 87086; 87088; 87186

== ENCOUNTER → 2022-09-04 11:04 | Outpatient (CLI) | payer MEDICARE, SELFPAY ==
[2022-09-04 11:18] LABS: Microscopic, Urine URINE MICROSCOPIC (MICROSCOPIC)
[2022-09-04 12:05] LABS: Basophils # 0.1 K/mm3 (0-0.2); Basophils % 1.1 % (0.1-2.0); Eosinophils # 0.1 K/mm3 (0.0-0.4); Eosinophils % 2.9 % (0.1-12.0); Hematocrit 39.5 % (42.0-52.0); Hemoglobin 12.3 g/dL (14.1-18.0); Lymphocytes % 20.9 % (10-50); Mean Corpuscular HGB Conc 31.2 g/dL (31.8-35.4); Mean Corpuscular Hemoglobin 30.8 pg (27.0-31.2); Mean Corpuscular Volume 98.9 fl (80-94); Mean Platelet Volume 8.9 fl (7.4-10.4); Monocytes # 0.4 K/mm3 (0.1-1.0); Monocytes % 9.4 % (1.7-9.3); Neutrophils # 3.1 K/mm3 (1.8-7.8); Neutrophils % 65.7 % (37.0-80.0); Platelet Count 221 K/mm3 (142-424); Red Blood Count 3.99 M/mm3 (4.60-6.20); Red Cell Distribution Width 16.8 % (11.5-17.5); White Blood Count 4.7 K/mm3 (4.8-10.8)
[2022-09-04 12:17] LABS: Appearance,Urine CLEAR (Clear); Blood, Urine Negative (Negative); Color,Urine YELLOW (Yellow); Glucose,Urine (UA) Negative (Negative); Ketones,Urine TRACE (Negative); Leukocyte Esterase,Urine Negative (Negative); Nitrate,Urine Negative (Negative); PH,Urine 5.5 (5.0-8.5); Protein,Urine TRACE (Negative); Urobilinogen,Urine 0.2 EU/dl (0.2)
[2022-09-04 12:22] LABS: Albumin Level 3.8 g/dl (3.5-5.0); Anion Gap 16.1 mEq/L (5-15); Blood Urea Nitrogen 23 mg/dl (9-20); Calcium 8.8 mg/dl (8.4-10.2); Carbon Dioxide 28 mmol/L (22.0-30.0); Chloride 100 mmol/L (98-107); Estimated Glomerular Filt Rate 49 ml/min (>60); GFR (African American) 59 ML/MIN (>60); Glucose 88 mg/dl (74-100); Phosphorous 3.5 mg/dl (2.5-4.5); Potassium 4.1 mmoL/L (3.5-5.1); Sodium 140 mmol/L (136-145)
[2022-09-04 12:23] LABS: Creatinine,Urine Random 225 mg/dL (Not Estab.)
[2022-09-04 12:27] LABS: Bilirubin,Urine 1+ (Negative)
[2022-09-04 12:28] LABS: Intact Parathyroid Hormone 93.8 pg/mL (7.5-53.5)
[2022-09-04 12:29] LABS: Bacteria,Urine Trace /lpf
[2022-09-10 21:19] LABS: 1,25 Dihydroxy Vitamin D 31 pg/mL (.); 1,25-Dihydroxy, Vitamin D-2 <10 pg/mL (.); 1,25-Dihydroxy, Vitamin D-3 31 pg/mL (.)
== END ==
PROVIDERS: Visit Provider Hospitalist
DX: N18.9 Chronic kidney disease, unspecified (principal)
CPT/HCPCS: 36415; 80069; 81001; 82570; 82652; 83970; 84155; 85025

== ENCOUNTER → 2022-09-13 10:11 | Outpatient (CLI) | payer MEDICARE, SELFPAY ==
[2022-09-13 10:21] LABS: Microscopic, Urine URINE MICROSCOPIC (MICROSCOPIC)
[2022-09-13 11:14] LABS: Albumin Level 4.1 g/dl (3.5-5.0); Anion Gap 16.9 mEq/L (5-15); Blood Urea Nitrogen 30 mg/dl (9-20); Calcium 8.6 mg/dl (8.4-10.2); Carbon Dioxide 37 mmol/L (22.0-30.0); Chloride 90 mmol/L (98-107); Estimated Glomerular Filt Rate 37 ml/min (>60); GFR (African American) 44 ML/MIN (>60); Glucose 105 mg/dl (74-100); Phosphorous 3.4 mg/dl (2.5-4.5); Sodium 141 mmol/L (136-145)
[2022-09-13 11:15] LABS: Appearance,Urine CLEAR (Clear); Bilirubin,Urine Negative (Negative); Blood, Urine Negative (Negative); Color,Urine YELLOW (Yellow); Glucose,Urine (UA) Negative (Negative); Ketones,Urine Negative (Negative); Leukocyte Esterase,Urine Negative (Negative); Nitrate,Urine Negative (Negative); Protein,Urine Negative (Negative); Specific Gravity, Urine 1.015 (1.005-1.030); Urobilinogen,Urine 0.2 EU/dl (0.2)
[2022-09-13 11:43] LABS: Potassium 2.9 mmoL/L (3.5-5.1)
[2022-09-13 11:57] LABS: Bacteria,Urine Trace /lpf; Squamous Epithelial Cell,Urine Occasional #/hpf (0-5)
== END ==
PROVIDERS: PCP Nurse Practitioner; Visit Provider Internal Medicine Nephrology
DX: I10 Essential (primary) hypertension (principal)
CPT/HCPCS: 36415; 80069; 81001

== ENCOUNTER → 2022-09-24 14:04 | Outpatient (CLI) | payer MEDICARE, SELFPAY ==
[2022-09-24 15:34] LABS: Basophils # 0.1 K/mm3 (0-0.2); Eosinophils # 0.1 K/mm3 (0.0-0.4); Hematocrit 40.9 % (42.0-52.0); Hemoglobin 12.5 g/dL (14.1-18.0); Lymphocytes # 0.8 K/mm3 (0.7-4.5); Lymphocytes % 17.2 % (10-50); Mean Corpuscular HGB Conc 30.6 g/dL (31.8-35.4); Mean Corpuscular Hemoglobin 30.5 pg (27.0-31.2); Mean Corpuscular Volume 99.5 fl (80-94); Mean Platelet Volume 9.8 fl (7.4-10.4); Monocytes # 0.4 K/mm3 (0.1-1.0); Monocytes % 7.5 % (1.7-9.3); Neutrophils # 3.5 K/mm3 (1.8-7.8); Neutrophils % 72.3 % (37.0-80.0); Platelet Count 203 K/mm3 (142-424); Red Blood Count 4.11 M/mm3 (4.60-6.20); Red Cell Distribution Width 16.9 % (11.5-17.5); White Blood Count 4.8 K/mm3 (4.8-10.8)
[2022-09-24 16:03] LABS: Anion Gap 16.6 mEq/L (5-15); Blood Urea Nitrogen 41 mg/dl (9-20); Calcium 8.5 mg/dl (8.4-10.2); Carbon Dioxide 31 mmol/L (22.0-30.0); Chloride 96 mmol/L (98-107); Estimated Glomerular Filt Rate 42 ml/min (>60); GFR (African American) 51 ML/MIN (>60); Glucose 92 mg/dl (74-100); Magnesium 1.5 mg/dl (1.6-2.3); Potassium 3.6 mmoL/L (3.5-5.1); Sodium 140 mmol/L (136-145)
== END ==
PROVIDERS: PCP Nurse Practitioner; Visit Provider Internal Medicine Nephrology
DX: N17.9 Acute kidney failure, unspecified (principal); E87.6 Hypokalemia; D64.9 Anemia, unspecified
CPT/HCPCS: 36415; 80048; 83735; 85025

== ENCOUNTER → 2022-10-22 08:52 | Outpatient (CLI) | payer MEDICARE, SELFPAY ==
[2022-10-22 09:02] LABS: Microscopic, Urine URINE MICROSCOPIC (MICROSCOPIC)
[2022-10-22 09:27] LABS: Basophils # 0.1 K/mm3 (0-0.2); Basophils % 0.9 % (0.1-2.0); Eosinophils # 0.2 K/mm3 (0.0-0.4); Eosinophils % 3.8 % (0.1-12.0); Hematocrit 38.3 % (42.0-52.0); Hemoglobin 12.3 g/dL (14.1-18.0); Lymphocytes % 16.2 % (10-50); Mean Corpuscular Hemoglobin 31.2 pg (27.0-31.2); Mean Corpuscular Volume 97.6 fl (80-94); Mean Platelet Volume 9.1 fl (7.4-10.4); Monocytes # 0.4 K/mm3 (0.1-1.0); Monocytes % 6.2 % (1.7-9.3); Neutrophils # 4.3 K/mm3 (1.8-7.8); Neutrophils % 72.8 % (37.0-80.0); Platelet Count 261 K/mm3 (142-424); Red Blood Count 3.92 M/mm3 (4.60-6.20); Red Cell Distribution Width 16.7 % (11.5-17.5); White Blood Count 5.9 K/mm3 (4.8-10.8)
[2022-10-22 10:14] LABS: Albumin Level 3.3 g/dl (3.5-5.0); Anion Gap 8.1 mEq/L (5-15); Blood Urea Nitrogen 38 mg/dl (9-20); Calcium 8.6 mg/dl (8.4-10.2); Carbon Dioxide 31 mmol/L (22.0-30.0); Chloride 102 mmol/L (98-107); Estimated Glomerular Filt Rate 37 ml/min (>60); GFR (African American) 44 ML/MIN (>60); Glucose 99 mg/dl (74-100); Phosphorous 3.7 mg/dl (2.5-4.5); Potassium 4.1 mmoL/L (3.5-5.1); Sodium 137 mmol/L (136-145)
[2022-10-22 10:26] LABS: Intact Parathyroid Hormone 97.6 pg/mL (7.5-53.5)
[2022-10-22 10:59] LABS: Appearance,Urine CLEAR (Clear); Bilirubin,Urine Negative (Negative); Blood, Urine Negative (Negative); Color,Urine YELLOW (Yellow); Glucose,Urine (UA) Negative (Negative); Ketones,Urine Negative (Negative); Leukocyte Esterase,Urine Negative (Negative); Nitrate,Urine Negative (Negative); Protein,Urine Negative (Negative); Urobilinogen,Urine 0.2 EU/dl (0.2)
[2022-10-22 11:29] LABS: Squamous Epithelial Cell,Urine Occasional #/hpf (0-5); WBC,Urine Occasional #/hpf (0-3)
[2022-10-22 11:37] LABS: Iron 45 ug/dL (49-181)
[2022-10-22 11:46] LABS: Total Iron Binding Capacity 309 ug/dL (261-462)
[2022-10-22 12:14] LABS: Ferritin 90.3 ng/ml (17.9-464)
[2022-10-28 18:32] LABS: 1,25 Dihydroxy Vitamin D 28 pg/mL (.); 1,25-Dihydroxy, Vitamin D-2 <10 pg/mL (.); 1,25-Dihydroxy, Vitamin D-3 25 pg/mL (.)
== END ==
PROVIDERS: PCP Nurse Practitioner; Visit Provider Internal Medicine Nephrology
DX: I10 Essential (primary) hypertension (principal); N18.9 Chronic kidney disease, unspecified; D64.9 Anemia, unspecified; E61.1 Iron deficiency
CPT/HCPCS: 36415; 80069; 81001; 82652; 82728; 83540; 83550; 83970; 85025

== ENCOUNTER → 2022-11-20 09:11 | Outpatient (CLI) | payer MEDICARE, SELFPAY ==
[2022-11-20 09:29] LABS: Microscopic, Urine URINE MICROSCOPIC (MICROSCOPIC)
[2022-11-20 09:51] LABS: Appearance,Urine CLEAR (Clear); Bilirubin,Urine Negative (Negative); Blood, Urine Negative (Negative); Color,Urine YELLOW (Yellow); Glucose,Urine (UA) Negative (Negative); Ketones,Urine Negative (Negative); Leukocyte Esterase,Urine Negative (Negative); Nitrate,Urine Negative (Negative); Protein,Urine Negative (Negative); Urobilinogen,Urine 0.2 EU/dl (0.2)
[2022-11-20 10:01] LABS: Chloride 98 mmol/L (98-107); Sodium 139 mmol/L (136-145)
[2022-11-20 10:02] LABS: Albumin Level 3.3 g/dl (3.5-5.0)
[2022-11-20 10:04] LABS: Anion Gap 10.9 mEq/L (5-15); Blood Urea Nitrogen 43 mg/dl (9-20); Carbon Dioxide 33 mmol/L (22.0-30.0); Estimated Glomerular Filt Rate 33 ml/min (>60); GFR (African American) 39 ML/MIN (>60)
[2022-11-20 10:05] LABS: Calcium 8.8 mg/dl (8.4-10.2); Glucose 101 mg/dl (74-100); Phosphorous 3.5 mg/dl (2.5-4.5)
[2022-11-20 10:28] LABS: Amorphous Sediment,Urine 2+ /lpf; Bacteria,Urine 1+ /lpf; Mucus,Urine 1+ /lpf
[2022-11-20 14:29] LABS: Potassium 2.9 mmoL/L (3.5-5.1)
--- NOTE | 2022-11-20 18:09 | PC.NURSE ---
I spoke with this pt about a critical K+/ that outpt lab was unable to report to the ordering provider. Pt states he has a follow up with the Nephrology doctor that ordered the labs tomorrow 11/21 and he will take care of it then . I told pt if he has any s/s to go to the closest ER and he stated that my potassium has done this a couple times. I will have the doc take care of it in the morning.
== END ==
PROVIDERS: PCP Nurse Practitioner; Visit Provider Internal Medicine Nephrology
DX: I10 Essential (primary) hypertension (principal)
CPT/HCPCS: 36415; 80069; 81001

== ENCOUNTER → 2022-11-22 12:43 | Outpatient (CLI) | payer MEDICARE, SELFPAY ==
[2022-11-23 09:48] LABS: HBsAg Screen Negative (Negative); HCV Ab Non Reactive (Non Reactive); Hep A Ab, IGM Negative (Negative); Hep B Core Ab, IgM Negative (Negative)
== END ==
LOC: LAB 12:45
PROVIDERS: PCP Nurse Practitioner; Visit Provider Student in an Organized Health Care Education/Training Program
DX: R18.8 Other ascites
CPT/HCPCS: 36415; 80074

== ENCOUNTER → 2022-12-04 10:15 | Outpatient (CLI) | payer MEDICARE, SELFPAY ==
[2022-12-04 10:25] LABS: Microscopic, Urine URINE MICROSCOPIC (MICROSCOPIC)
[2022-12-04 10:52] LABS: Appearance,Urine SL CLOUDY (Clear); Bilirubin,Urine Negative (Negative); Blood, Urine Negative (Negative); Color,Urine YELLOW (Yellow); Glucose,Urine (UA) Negative (Negative); Ketones,Urine Negative (Negative); Leukocyte Esterase,Urine Negative (Negative); Nitrate,Urine Negative (Negative); Protein,Urine Negative (Negative); Urobilinogen,Urine 0.2 EU/dl (0.2)
[2022-12-04 11:14] LABS: Bacteria,Urine 1+ /lpf; Squamous Epithelial Cell,Urine Occasional #/hpf (0-5)
[2022-12-04 11:15] LABS: Albumin Level 3.4 g/dl (3.5-5.0); Chloride 95 mmol/L (98-107); Potassium 3.1 mmoL/L (3.5-5.1); Sodium 138 mmol/L (136-145)
[2022-12-04 11:18] LABS: Anion Gap 15.1 mEq/L (5-15); Blood Urea Nitrogen 57 mg/dl (9-20); Calcium 8.9 mg/dl (8.4-10.2); Carbon Dioxide 31 mmol/L (22.0-30.0); Creatinine,Urine Random 65 mg/dL (Not Estab.); Estimated Glomerular Filt Rate 26 ml/min (>60); GFR (African American) 32 ML/MIN (>60); Glucose 105 mg/dl (74-100); Phosphorous 3.8 mg/dl (2.5-4.5)
== END ==
PROVIDERS: PCP Nurse Practitioner; Visit Provider Internal Medicine Nephrology
DX: N18.9 Chronic kidney disease, unspecified (principal)
CPT/HCPCS: 36415; 80069; 81001; 82570; 84155

== ENCOUNTER → 2022-12-07 11:21 | Outpatient (CLI) | payer MEDICARE, SELFPAY ==
[2022-12-07 12:10] LABS: Anion Gap 18.2 mEq/L (5-15); Blood Urea Nitrogen 54 mg/dl (9-20); Calcium 8.8 mg/dl (8.4-10.2); Carbon Dioxide 28 mmol/L (22.0-30.0); Chloride 96 mmol/L (98-107); Estimated Glomerular Filt Rate 28 ml/min (>60); GFR (African American) 34 ML/MIN (>60); Glucose 107 mg/dl (74-100); Potassium 3.2 mmoL/L (3.5-5.1); Sodium 139 mmol/L (136-145)
== END ==
PROVIDERS: PCP Nurse Practitioner; Visit Provider Internal Medicine Cardiovascular Disease
DX: I31.39 Other pericardial effusion (noninflammatory) (principal); I10 Essential (primary) hypertension
CPT/HCPCS: 36415; 80048

== ENCOUNTER → 2022-12-14 09:30 | Outpatient (CLI) | payer MEDICARE, SELFPAY ==
[2022-12-14 09:38] LABS: Microscopic, Urine URINE MICROSCOPIC (MICROSCOPIC)
[2022-12-14 09:57] LABS: Appearance,Urine CLEAR (Clear); Bilirubin,Urine Negative (Negative); Blood, Urine Negative (Negative); Color,Urine YELLOW (Yellow); Glucose,Urine (UA) Negative (Negative); Ketones,Urine Negative (Negative); Leukocyte Esterase,Urine Negative (Negative); Nitrate,Urine Negative (Negative); Protein,Urine Negative (Negative); Urobilinogen,Urine 0.2 EU/dl (0.2)
[2022-12-14 10:10] LABS: Bacteria,Urine Trace /lpf; Squamous Epithelial Cell,Urine Occasional #/hpf (0-5)
[2022-12-14 10:13] LABS: Basophils # 0.1 K/mm3 (0-0.2); Basophils % 0.7 % (0.1-2.0); Eosinophils # 0.2 K/mm3 (0.0-0.4); Eosinophils % 2.5 % (0.1-12.0); Hematocrit 37.8 % (42.0-52.0); Hemoglobin 11.8 g/dL (14.1-18.0); Lymphocytes # 0.6 K/mm3 (0.7-4.5); Lymphocytes % 8.5 % (10-50); Mean Corpuscular HGB Conc 31.1 g/dL (31.8-35.4); Mean Corpuscular Volume 102.8 fl (80-94); Mean Platelet Volume 8.9 fl (7.4-10.4); Monocytes # 0.3 K/mm3 (0.1-1.0); Monocytes % 4.4 % (1.7-9.3); Neutrophils # 6.1 K/mm3 (1.8-7.8); Platelet Count 291 K/mm3 (142-424); Red Blood Count 3.68 M/mm3 (4.60-6.20); Red Cell Distribution Width 16.6 % (11.5-17.5); White Blood Count 7.2 K/mm3 (4.8-10.8)
[2022-12-14 10:14] LABS: Albumin Level 3.6 g/dl (3.5-5.0); Anion Gap 14.4 mEq/L (5-15); Blood Urea Nitrogen 52 mg/dl (9-20); Calcium 8.7 mg/dl (8.4-10.2); Carbon Dioxide 29 mmol/L (22.0-30.0); Chloride 99 mmol/L (98-107); Estimated Glomerular Filt Rate 24 ml/min (>60); GFR (African American) 29 ML/MIN (>60); Glucose 96 mg/dl (74-100); Potassium 3.4 mmoL/L (3.5-5.1); Sodium 139 mmol/L (136-145)
[2022-12-14 10:28] LABS: Intact Parathyroid Hormone 118.2 pg/mL (7.5-53.5)
[2022-12-14 10:32] LABS: 25-OH Vitamin D, Total 57.5 ng/mL (30-100)
[2022-12-14 10:48] LABS: Ferritin 116 ng/ml (17.9-464)
[2022-12-14 11:01] LABS: Iron 48 ug/dL (49-181)
[2022-12-14 11:11] LABS: Total Iron Binding Capacity 338 ug/dL (261-462)
== END ==
PROVIDERS: PCP Nurse Practitioner; Visit Provider Internal Medicine Nephrology
DX: D64.9 Anemia, unspecified (principal); E55.9 Vitamin D deficiency, unspecified; N18.9 Chronic kidney disease, unspecified; Z68.26 Body mass index [BMI] 26.0-26.9, adult
CPT/HCPCS: 36415; 80069; 81001; 82306; 82728; 83540; 83550; 83970; 85025

== ENCOUNTER → 2022-12-21 08:01 | Outpatient (CLI) | payer MEDICARE, SELFPAY ==
[2022-12-21 08:13] LABS: Microscopic, Urine URINE MICROSCOPIC (MICROSCOPIC)
[2022-12-21 08:35] LABS: Basophils # 0.1 K/mm3 (0-0.2); Basophils % 0.9 % (0.1-2.0); Eosinophils # 0.2 K/mm3 (0.0-0.4); Eosinophils % 3.6 % (0.1-12.0); Hematocrit 38.3 % (42.0-52.0); Hemoglobin 12.1 g/dL (14.1-18.0); Lymphocytes # 0.8 K/mm3 (0.7-4.5); Lymphocytes % 13.6 % (10-50); Mean Corpuscular HGB Conc 31.5 g/dL (31.8-35.4); Mean Corpuscular Hemoglobin 32.1 pg (27.0-31.2); Mean Corpuscular Volume 101.6 fl (80-94); Mean Platelet Volume 8.7 fl (7.4-10.4); Monocytes # 0.4 K/mm3 (0.1-1.0); Monocytes % 6.4 % (1.7-9.3); Neutrophils # 4.5 K/mm3 (1.8-7.8); Neutrophils % 75.6 % (37.0-80.0); Platelet Count 305 K/mm3 (142-424); Red Blood Count 3.76 M/mm3 (4.60-6.20); Red Cell Distribution Width 16.1 % (11.5-17.5); White Blood Count 5.9 K/mm3 (4.8-10.8)
[2022-12-21 09:04] LABS: Appearance,Urine CLEAR (Clear); Bilirubin,Urine Negative (Negative); Blood, Urine Negative (Negative); Color,Urine YELLOW (Yellow); Glucose,Urine (UA) Negative (Negative); Ketones,Urine Negative (Negative); Leukocyte Esterase,Urine Negative (Negative); Nitrate,Urine Negative (Negative); Protein,Urine Negative (Negative); Urobilinogen,Urine 0.2 EU/dl (0.2)
[2022-12-21 09:15] LABS: Creatinine,Urine Random 89 mg/dL (Not Estab.)
[2022-12-21 09:17] LABS: Bacteria,Urine Trace /lpf; Squamous Epithelial Cell,Urine Occasional #/hpf (0-5)
[2022-12-21 09:27] LABS: Magnesium 1.4 mg/dl (1.6-2.3)
[2022-12-21 09:28] LABS: Albumin Level 3.5 g/dl (3.5-5.0); Blood Urea Nitrogen 51 mg/dl (9-20); Calcium 8.5 mg/dl (8.4-10.2); Carbon Dioxide 29 mmol/L (22.0-30.0); Chloride 99 mmol/L (98-107); Estimated Glomerular Filt Rate 28 ml/min (>60); GFR (African American) 34 ML/MIN (>60); Glucose 101 mg/dl (74-100); Phosphorous 3.1 mg/dl (2.5-4.5); Sodium 137 mmol/L (136-145)
== END ==
PROVIDERS: Student in an Organized Health Care Education/Training Program; PCP Nurse Practitioner; Visit Provider Nurse Practitioner
DX: N17.9 Acute kidney failure, unspecified (principal)
CPT/HCPCS: 36415; 80069; 81001; 82570; 83735; 84155; 85025

== ENCOUNTER → 2023-01-01 11:12 | Outpatient (CLI) | payer MEDICARE, SELFPAY ==
[2023-01-01 11:24] LABS: Microscopic, Urine URINE MICROSCOPIC (MICROSCOPIC)
[2023-01-01 11:45] LABS: Appearance,Urine CLEAR (Clear); Bilirubin,Urine Negative (Negative); Blood, Urine Negative (Negative); Color,Urine YELLOW (Yellow); Glucose,Urine (UA) Negative (Negative); Ketones,Urine Negative (Negative); Leukocyte Esterase,Urine Negative (Negative); Nitrate,Urine Negative (Negative); Protein,Urine Negative (Negative); Urobilinogen,Urine 0.2 EU/dl (0.2)
[2023-01-01 12:27] LABS: Creatinine,Urine Random 45 mg/dL (Not Estab.)
[2023-01-01 12:54] LABS: Yeast,Urine Occasional /lpf
[2023-01-01 13:26] LABS: Albumin Level 3.8 g/dl (3.5-5.0); Anion Gap 15.2 mEq/L (5-15); Blood Urea Nitrogen 47 mg/dl (9-20); Calcium 8.8 mg/dl (8.4-10.2); Carbon Dioxide 30 mmol/L (22.0-30.0); Chloride 96 mmol/L (98-107); Estimated Glomerular Filt Rate 28 ml/min (>60); GFR (African American) 34 ML/MIN (>60); Glucose 97 mg/dl (74-100); Phosphorous 4.1 mg/dl (2.5-4.5); Potassium 3.2 mmoL/L (3.5-5.1); Sodium 138 mmol/L (136-145)
== END ==
PROVIDERS: PCP Nurse Practitioner; Visit Provider Internal Medicine Nephrology
DX: N18.2 Chronic kidney disease, stage 2 (mild) (principal); N04.9 Nephrotic syndrome with unspecified morphologic changes
CPT/HCPCS: 36415; 80069; 81001; 82570; 84155

== ENCOUNTER → 2023-01-28 07:05 | Outpatient (CLI) | payer MEDICARE, SELFPAY ==
[2023-01-28 07:14] LABS: Microscopic, Urine URINE MICROSCOPIC (MICROSCOPIC)
[2023-01-28 07:30] LABS: Basophils # 0.1 K/mm3 (0-0.2); Basophils % 0.9 % (0.1-2.0); Eosinophils # 0.2 K/mm3 (0.0-0.4); Hematocrit 36.3 % (42.0-52.0); Lymphocytes # 0.8 K/mm3 (0.7-4.5); Lymphocytes % 11.9 % (10-50); Mean Corpuscular HGB Conc 33.2 g/dL (31.8-35.4); Mean Corpuscular Hemoglobin 34.4 pg (27.0-31.2); Mean Corpuscular Volume 103.9 fl (80-94); Mean Platelet Volume 8.4 fl (7.4-10.4); Monocytes # 0.5 K/mm3 (0.1-1.0); Neutrophils # 5.3 K/mm3 (1.8-7.8); Neutrophils % 77.2 % (37.0-80.0); Platelet Count 301 K/mm3 (142-424); Red Blood Count 3.49 M/mm3 (4.60-6.20); Red Cell Distribution Width 14.9 % (11.5-17.5); White Blood Count 6.8 K/mm3 (4.8-10.8)
[2023-01-28 07:31] LABS: Appearance,Urine CLEAR (Clear); Bilirubin,Urine Negative (Negative); Blood, Urine Negative (Negative); Color,Urine YELLOW (Yellow); Glucose,Urine (UA) Negative (Negative); Ketones,Urine Negative (Negative); Leukocyte Esterase,Urine Negative (Negative); Nitrate,Urine Negative (Negative); Protein,Urine Negative (Negative); Specific Gravity, Urine 1.015 (1.005-1.030); Urobilinogen,Urine 0.2 EU/dl (0.2)
[2023-01-28 07:39] LABS: Creatinine,Urine Random 126 mg/dL (Not Estab.)
[2023-01-28 09:38] LABS: Albumin Level 3.5 g/dl (3.5-5.0); Anion Gap 14.7 mEq/L (5-15); Blood Urea Nitrogen 52 mg/dl (9-20); Calcium 8.7 mg/dl (8.4-10.2); Carbon Dioxide 23 mmol/L (22.0-30.0); Chloride 101 mmol/L (98-107); Estimated Glomerular Filt Rate 28 ml/min (>60); GFR (African American) 33 ML/MIN (>60); Glucose 94 mg/dl (74-100); Phosphorous 4.1 mg/dl (2.5-4.5); Potassium 4.7 mmoL/L (3.5-5.1); Sodium 134 mmol/L (136-145)
[2023-01-28 09:52] LABS: Intact Parathyroid Hormone 172.3 pg/mL (7.5-53.5)
[2023-02-04 18:11] LABS: 1,25 Dihydroxy Vitamin D 21 pg/mL (.); 1,25-Dihydroxy, Vitamin D-2 <10 pg/mL (.); 1,25-Dihydroxy, Vitamin D-3 18 pg/mL (.)
== END ==
PROVIDERS: PCP Nurse Practitioner; Visit Provider Hospitalist
DX: R18.8 Other ascites (principal)
CPT/HCPCS: 36415; 80069; 81001; 82570; 82652; 83970; 84155; 85025